=== PATIENT | female | born 1975 | race Caucasian/White ===

== ENCOUNTER 2023-06-17 17:05 | Emergency (ER) | payer MEDICAID ==
[~2023-06-17] VITALS: Ht 154.9 cm; Wt 64.9 kg
[2023-06-17] MEDS ORDERED: CLINDAMYCIN HC300 MG (17:48)
[2023-06-17] MEDS ORDERED: CLEOCIN HCL300 MG PO (18:00)
[2023-06-17 18:15] VITALS: BP 147/97
== END 2023-06-17 18:15 | disposition home or self-care (01) ==
LOC: ED 17:05
DX: K04.7 Periapical abscess without sinus (principal); Z79.899 Other long term (current) drug therapy
CPT/HCPCS: 99282

== ENCOUNTER 2025-05-08 02:57 | Emergency (ER) | payer OTHER ==
[~2025-05-08] VITALS: Ht 154.9 cm; Wt 70.0 kg
[~2025-05-08 02:57] MED LIST: CLEOCIN HCL300 MG PO; CLINDAMYCIN HC300 MG
[2025-05-08] MEDS ORDERED: TRAMADOL HCL50 MG PO (03:08)
[2025-05-08] MEDS ORDERED: TRAMADOL HCL 50 MG HOME.PACK PO ONE (03:15)
[2025-05-08] MEDS ORDERED: DOXYCYCLINE HYCLATE 100 MG HOME.PACK PO ONE (03:15)
[2025-05-08] MEDS ORDERED: TRAMADOL HCL 50 MG TAB PO ONE (03:15)
[2025-05-08 03:21] VITALS: BP 134/78
== END 2025-05-08 03:23 | disposition home or self-care (01) ==
LOC: ED 02:57
DX: L03.114 Cellulitis of left upper limb (principal); Z79.899 Other long term (current) drug therapy
CPT/HCPCS: 99283; A9270